=== PATIENT | female | born 1945 | race Native Hawaiian/Other Pacific Islander ===

== ENCOUNTER → 2016-04-03 | Outpatient (CLI) | payer MEDICARE, OTHER ==
[~2016-04-03] MED LIST: ACETAMINOPHEN TAB 500 MG TAB PO ONE; FAMOTIDINE 20 MG/2 ML VIAL IV ONE; SODIUM CHLORIDE 0.9% 250 ML in EMPTY BAG 1 BAG IV PRN; SODIUM CHLORIDE 0.9% 500 ML in EMPTY BAG 1 BAG IV PRN; diphenhydrAMINE 50 MG/ML 1 ML VIAL IVP ONE; methylPREDNISolone SOD SUCCI 125 MG/2 ML VIAL IV ONE; riTUXimab 700 MG in SODIUM CHLORIDE 0.9% 500 ML IV NR
[2016-04-03 09:15] VITALS: TEMP 98.5
[2016-04-03 09:55] LABS: Basophils % (A) 1 %; CH 31.3; CHCM 33.8; Eosinophils # (A) 0.1 k/uL (0-0.7); Eosinophils % (A) 2 %; HCT 39.3 % (34.0-46.0); HDW 2.73; Luc # (Auto) 0.14; Luc % (Auto) 4; Lymphocytes # (A) 1.6 k/uL (1.0-4.8); Lymphocytes % (A) 40 %; MCH 30.7 pg (25.0-35.0); MCHC 33.1 g/dL (31.0-37.0); MCV 92.9 fL (80.0-100.0); Mean Platelet Volume 7.6; Monocytes # (A) 0.4 k/uL (0-1.0); Monocytes % (A) 11 %; Neutrophils # (A) 1.7 k/uL (1.3-7.7); Neutrophils % (A) 43 %; RBC 4.23 m/uL (3.80-5.40); RDW 12.9 % (11.5-15.5); WBC (Perox) 4.06
[2016-04-03 11:00] VITALS: RESP 18
[2016-04-03 12:13] VITALS: BP 139/58; PULSE 67
== END | disposition home or self-care (01) ==
LOC: PROCWHC3 08:43
PROVIDERS: ATTEND Internal Medicine Hematology & Oncology
DX: Z51.11 Encounter for antineoplastic chemotherapy (principal); C82.01 Follicular lymphoma grade I, lymph nodes of head, face, and neck
CPT/HCPCS: 85025; 96375; 96413; 96415; 36415; J1200; J2930; J9310

== ENCOUNTER → 2016-05-29 | Outpatient (CLI) | payer MEDICARE, OTHER ==
[2016-05-29 08:31] VITALS: TEMP 98.1
[2016-05-29 08:45] LABS: Basophils % (A) 1 %; CHCM 34.2; Eosinophils # (A) 0.1 k/uL (0-0.7); Eosinophils % (A) 2 %; HCT 36.4 % (34.0-46.0); HDW 2.76; HGB 12.7 gm/dL (11.4-16.0); Luc # (Auto) 0.14; Luc % (Auto) 3; Lymphocytes # (A) 1.2 k/uL (1.0-4.8); Lymphocytes % (A) 22 %; MCH 32.7 pg (25.0-35.0); MCHC 34.8 g/dL (31.0-37.0); MCV 94.1 fL (80.0-100.0); Mean Platelet Volume 8.4; Monocytes # (A) 0.4 k/uL (0-1.0); Monocytes % (A) 8 %; Neutrophils # (A) 3.5 k/uL (1.3-7.7); Neutrophils % (A) 65 %; RBC 3.87 m/uL (3.80-5.40); RDW 12.9 % (11.5-15.5); WBC 5.4 k/uL (3.8-10.6); WBC (Perox) 5.82
[2016-05-29 11:49] VITALS: BP 137/61; PULSE 65; RESP 18
== END | disposition home or self-care (01) ==
LOC: PROCWHC3 08:17
PROVIDERS: ATTEND Internal Medicine Hematology & Oncology
DX: C82.01 Follicular lymphoma grade I, lymph nodes of head, face, and neck (principal)
CPT/HCPCS: 85025; 96365; 96366; 96375; 36415; J1200; J2930; J9310

== ENCOUNTER → 2016-07-08 | Outpatient (CLI) | payer MEDICARE ==
--- NOTE | 2016-07-08 19:38 | PE ---
Nuclear medicine PET/CT HISTORY: Lymphoma The patient received 13.5 mCi F-18 FDG and delayed scanning was performed from the skull base through the mid thighs. Localization and attenuation correction CT scan was performed. Correlation to prior nuclear medicine PET/CT second of June 2015 Neck and chest: There is no evident adenopathy. No lung mass, there is no pleural or pericardial effu stacy. No suspicious hypermetabolic uptake. Small prevascular node is present in the mediastinum. Abdomen pelvis: The abnormal soft tissue in the periaortic location has diminished markedly in the in terval, mesenteric adenopathy has normalized, is no longer enlarged, there is a minimal inflammatory change in the mesenteric fat. In the right groin there is a persistent focus of soft tissue measuring approximately 12 mm with associated hypermetabolic uptake SUV 4.9, left groin no is also present whi ch is not enlarged but shows associated hypermetabolic uptake, SUV 2.3. IMPRESSION: Improvement as compared to previous exam, persistent uptake within the groin regions as d escribed.
== END | disposition home or self-care (01) ==
LOC: RADPETMAIN 10:16
PROVIDERS: ATTEND Internal Medicine Hematology & Oncology
DX: C85.90 Non-Hodgkin lymphoma, unspecified, unspecified site (principal)
CPT/HCPCS: 78815; A9552

== ENCOUNTER → 2016-08-03 | Outpatient (CLI) | payer MEDICARE ==
[~2016-08-03] MED LIST changes: -riTUXimab 700 MG in SODIUM CHLORIDE 0.9% 500 ML IV NR; +riTUXimab 700 MG in SODIUM CHLORIDE 0.9% 500 ML IV ONE
[2016-08-03 10:39] VITALS: RESP 16; TEMP 97.9
[2016-08-03 10:44] LABS: Basophils % (A) 1 %; CH 31.9; CHCM 33.8; Eosinophils # (A) 0.2 k/uL (0-0.7); Eosinophils % (A) 3 %; HGB 13.1 gm/dL (11.4-16.0); Luc # (Auto) 0.09; Luc % (Auto) 2; Lymphocytes # (A) 1.2 k/uL (1.0-4.8); Lymphocytes % (A) 23 %; MCH 31.8 pg (25.0-35.0); MCHC 33.5 g/dL (31.0-37.0); MCV 94.9 fL (80.0-100.0); Mean Platelet Volume 7.5; Monocytes # (A) 0.4 k/uL (0-1.0); Monocytes % (A) 7 %; Neutrophils # (A) 3.1 k/uL (1.3-7.7); Neutrophils % (A) 64 %; RBC 4.11 m/uL (3.80-5.40); RDW 12.7 % (11.5-15.5); WBC 4.9 k/uL (3.8-10.6); WBC (Perox) 5.22
[2016-08-03 14:30] VITALS: BP 165/68; PULSE 72
== END | disposition home or self-care (01) ==
LOC: PROCWHC3 10:07
PROVIDERS: ATTEND Internal Medicine Hematology & Oncology
DX: C82.01 Follicular lymphoma grade I, lymph nodes of head, face, and neck (principal)
CPT/HCPCS: 85025; 96375; 96413; 96415; 36415; J1200; J2930; J9310

== ENCOUNTER → 2016-09-28 | Outpatient (CLI) | payer MEDICARE ==
[2016-09-28 10:26] VITALS: TEMP 98.6
[2016-09-28 10:48] LABS: Basophils % (A) 1 %; CH 31.5; Eosinophils # (A) 0.1 k/uL (0-0.7); Eosinophils % (A) 4 %; HCT 36.3 % (34.0-46.0); HDW 2.82; HGB 12.9 gm/dL (11.4-16.0); Luc # (Auto) 0.11; Luc % (Auto) 4; Lymphocytes # (A) 1.2 k/uL (1.0-4.8); Lymphocytes % (A) 42 %; MCH 32.2 pg (25.0-35.0); MCHC 35.6 g/dL (31.0-37.0); MCV 90.4 fL (80.0-100.0); Mean Platelet Volume 7.9; Monocytes # (A) 0.4 k/uL (0-1.0); Monocytes % (A) 14 %; Neutrophils % (A) 36 %; RBC 4.01 m/uL (3.80-5.40); RDW 12.7 % (11.5-15.5); WBC 2.9 k/uL (3.8-10.6)
[2016-09-28 13:14] VITALS: PULSE 63
[2016-09-28 13:44] VITALS: BP 136/63; RESP 18
== END | disposition home or self-care (01) ==
LOC: PROCWHC3 09:54
PROVIDERS: ATTEND Internal Medicine Hematology & Oncology
DX: C82.01 Follicular lymphoma grade I, lymph nodes of head, face, and neck (principal)
CPT/HCPCS: 85025; 96375; 96413; 96415; 36415; J1200; J2930; J9310

== ENCOUNTER → 2017-02-09 | Outpatient (CLI) | payer MEDICARE ==
--- NOTE | 2017-02-13 07:50 | MM ---
Reason for exam: screening (asymptomatic). Last mammogram was performed 6 years and 4 months ago. History: Patient is postmenopausal. Physical Findings: A clinical breast exam by your physician is recommended on an annual basis and results should be correlated with mammographic findings. MG 3D Screening Mammo W/Cad Bilateral CC and MLO view(s) were taken. Prior study comparison: October 10, 2010, bilateral digital screening mammo w/CAD. July 30, 2008, mammogram, performed at [facility]. The breast tissue is heterogeneously dense. This may lower the sensitivity of mammography. No significant changes when compared with prior studies. ASSESSMENT: Negative, BI-RAD 1 RECOMMENDATION: Routine screening mammogram of both breasts in 1 year.
== END | disposition home or self-care (01) ==
LOC: RADMAMWWP 14:33
PROVIDERS: ATTEND Family Medicine
DX: Z12.31 Encounter for screening mammogram for malignant neoplasm of breast (principal)
CPT/HCPCS: 77063; G0202

== ENCOUNTER → 2017-08-25 | Outpatient (CLI) | payer MEDICARE ==
--- NOTE | 2017-08-26 13:39 | PE ---
EXAMINATION TYPE: PET CT fusion skull to thigh DATE OF EXAM: 08/25/2017 COMPARISON: Prior PET/CT July 08, 2016 and older PET/CT study June 26, 2015 HISTORY: Follicular lymphoma progress study TECHNIQUE: Following the intravenous administration of 14.374 mCi of F-18 FDG, whole body images are performed from the skull base to the midthigh. Images are reviewed on the computer in the coronal, axial, and sagittal planes. Reconstructed rotating images are created on independent workstation and reviewed on the computer. A noncontrast CT is performed in conjunction with the PET scan. SCAN: Subsequent Scan FINDINGS: LIVER MEAN SUV: 2.45 MEDIASTINUM MEAN SUV: 0.82 SKULL BASE AND NECK: Prominent left supraclavicular lymph nodes are redemonstrated near axial image 53, for reference more anterior lymph node measures 1.3 x 0.8 cm. No suspicious hypermetabolic uptake is present currently. No significant change in size from most recent CT. CHEST, MEDIASTINUM, AND HILAR REGION: No suspicious hypermetabolic uptake or enlarged lymph nodes wit h particular attention to the right axilla and posterior left shoulder region at areas of prior adeno yolie on 2016 study. No hypermetabolic enlarged mediastinal lymph nodes are seen on current study. ABDOMEN AND PELVIS: No hepatosplenomegaly is seen. Scattered prominent but subcentimeter lymph nodes throughout the mesentery remain present without abnormal hypermetabolic uptake no significant change from most recent PET/CT. There are predominately stable prominent a metabolic retroperitoneal lymph nodes at and below renal a rteries. There is however new hypermetabolic left periaortic lymph node axial image 157 measuring 2.0 x 1.0 cm, max SUV is 4.74. Abnormal uptake right periaortic region is felt to reflect uptake along c ourse of right ureter. There is however new left external iliac chain lymph node axial image 206 дмитрий uring 1.9 x 1.5 cm, max SUV is 11.36. There are new abnormal bilateral groin lymph nodes however, for reference left groin lymph node measu res 2.3 x 1.8 cm with max SUV of 11.32 on axial image 239. For reference right groin lymph node measu res 2.5 x 1.8 cm on axial image 237 with max SUV of 9.01. OSSEOUS STRUCTURES: No new suspicious areas of abnormal hypermetabolic uptake. OTHER CT: Diffuse fatty infiltration of liver is redemonstrated. Cholecystectomy clips are again seen . There is some multilevel facet arthropathy in the lower lumbar spine. A few scattered pelvic phleboli ths are present. IMPRESSION: Active neoplastic recurrence is identified with new enlarged hypermetabolic lymph nodes i n the bilateral groin, left pelvis iliac chain lymph node, and retroperitoneum of the abdomen.
== END | disposition home or self-care (01) ==
LOC: RADPETMAIN 09:22
PROVIDERS: ATTEND Internal Medicine Hematology & Oncology
DX: C82.01 Follicular lymphoma grade I, lymph nodes of head, face, and neck (principal)
CPT/HCPCS: 78815; A9552

== ENCOUNTER 2017-10-04 08:51 | Day surgery (SDC) | payer MEDICARE ==
[2017-10-04 09:12] VITALS: BP 174/75; PULSE 70; RESP 20; TEMP 98.2
[2017-10-04 09:32] LABS: Glucose,Whole Blood 246 mg/dL (75-99)
--- NOTE | 2017-10-04 13:07 | US ---
EXAMINATION TYPE: US biopsy lymph node fine-needle aspiration and core biopsy right thigh mass DATE OF EXAM: 10/04/2017 HISTORY: Right proximal thigh mass. FINDINGS: Maximal barrier technique was utilized. The skin overlying a suitable path to the patient' s mass was localized with ultrasound and the overlying skin prepped and draped. Ultrasound was utili zed with sterile technique. Lidocaine was used for local anesthesia. 2 passes with a 21 and subseque ntly 25-gauge needle were made into the mass under ultrasound guidance. A skin greta was made with a scalpel. An 18-gauge needle was advanced under direct ultrasound guidance and core specimen obtained of the mass, additional core biopsy obtained with an 18-gauge needle. Specimens submitted to Pathol prachi. Following the procedure, hemostasis achieved and the patient is discharged in stable condition without complication. IMPRESSION:STATUS POST ULTRASOUND GUIDED CORE BIOPSY and fine-needle aspiration OF right lower extrem ity MASS, PATHOLOGY IS PENDING. THIS PROCEDURE IS PERFORMED BY THE UNDERSIGNED.
== END 2017-10-04 10:35 | disposition home or self-care (01) ==
LOC: RADPROMAIN 08:51
PROVIDERS: ATTEND Internal Medicine Hematology & Oncology
DX: C85.90 Non-Hodgkin lymphoma, unspecified, unspecified site (principal); R59.1 Generalized enlarged lymph nodes
CPT/HCPCS: 38505; 76942; 88173; 88305

== ENCOUNTER → 2018-04-20 | Outpatient (CLI) | payer MEDICARE ==
--- NOTE | 2018-04-22 07:56 | PE ---
EXAMINATION TYPE: PET CT fusion skull to thigh DATE OF EXAM: 04/21/2018 CLINICAL HISTORY: 72-year-old female restaging lymphoma TECHNIQUE: Following the intravenous administration of 12.0 mCi of F-18 FDG, whole body images are performed from the skull base to the midthigh. Images are reviewed on the computer in the coronal, a xial, and sagittal planes. Reconstructed rotating images are created on independent workstation and reviewed on the computer. A localization and attenuation correction CT is performed in conjunction with the PET scan. Glucose level: 123 mg/dL CTDI: 4.88 mGy DLP: 434.02 mGy/cm Injection site: Left AC COMPARISON: 08/25/2017. FINDINGS: PET: Physiologic FDG uptake within the neck and chest. Average liver SUV 2.4. Retroperitoneal lymph nodes at the level of the pancreas measure 9 mm, unchanged and without any disc rete FDG uptake. Previously hypermetabolic left paraaortic lymph node has decreased in size now measuring 8 mm versus 1.3 cm, previously and no longer shows any FDG uptake. Either tortuous vessels in the left periaortic region or stable lymph nodes measuring up to 1.2 cm al so show no discrete FDG uptake. Stable myesha mesentery with some associated prominent mesenteric lymph nodes measuring up to 9 mm are unchanged and show no discrete FDG uptake. The previous left external iliac chain lymph node now measures 4 mm versus 1.5 cm, previously. No FDG uptake. The previous bilateral inguinal lymph nodes now measure up to 1.1 cm with normal fatty hilum versus 1 .8 cm, previously and no longer show any FDG uptake. Focal moderate uptake along the left antecubital fossa compatible with site of FDG injection. ATTENUATION CORRECTION CT: Visualized paranasal sinuses and mastoid air cells appear clear. No cervical lymphadenopathy. Heart normal size without pericardial effusion. Aorta normal caliber with mild atherosclerotic arch calcifications and conventional arch vessel branching anatomy. Scattered small mediastinal lymph nod es measuring up to 8 mm are unchanged. Dependent atelectasis and mild emphysema. No consolidation or pleural effusion. Tiny hiatal hernia. Cholecystectomy clips. Some nodular calcifications along the hepatorenal recess could represent some dropped stones. These are unchanged. No dilated small bowel, free fluid, or janine e air. Scattered mild to moderate stool burden. No pericolonic inflammatory change. Bladder not distended. Uterus and both ovaries are visualized. Pelvic phlebolith. No abnormal fluid c ollection in the pelvis. Bones: Degenerative changes of the hips. Degenerative disc disease mid to lower lumbar spine. No osse ous destructive process. IMPRESSION: 1. Complete metabolic and CT response to the previous recurrence described on 08/25/2017. No active dis ease seen. 2. Chronic myesha mesentery with other stable borderline to mildly enlarged mesenteric and retroperito ping lymph nodes which continue to show no suspicious hypermetabolism. Findings likely reflect previo usly treated disease.
== END ==
LOC: RADPETMAIN 09:30
PROVIDERS: ATTEND Internal Medicine Hematology & Oncology
DX: C82.01 Follicular lymphoma grade I, lymph nodes of head, face, and neck (principal)
CPT/HCPCS: 78815; A9552

== ENCOUNTER → 2018-05-10 | Outpatient (CLI) | payer MEDICARE ==
--- NOTE | 2018-05-10 18:44 | ECHOF ---
Referral Reason:C82.01 Lymphoma, Z01.818 Chemotherapy MEASUREMENTS -------- HEIGHT: 165.1 cm WEIGHT: 74.4 kg BP: IVSd: 1.0 cm (0.6 - 1.1) LVIDd: 4.8 cm (3.9 - 5.3) LVPWd: 1.1 cm (0.6 - 1.1) IVSs: 1.4 cm LVIDs: 3.1 cm LVPWs: 1.5 cm LAESV Index (A-L): 16.64 ml/m Ao Diam: 3.6 cm (2.0 - 3.7) AV Cusp: 1.8 cm (1.5 - 2.6) LA Diam: 3.0 cm (2.7 - 3.8) MV EXCURSION: 12.364 mm (> 18.000) MV EF SLOPE: 69 mm/s (70 - 150) EPSS: 0.6 cm MV E Christopher: 0.64 m/s MV DecT: 186 ms MV A Christopher: 1.00 m/s MV E/A Ratio: 0.64 RAP: 5.00 mmHg RVSP: 10.09 mmHg FINDINGS -------- Sinus rhythm. This was a technically adequate study. The left ventricular size is normal. Left ventricular wall thickness is normal. Overall left vent ricular systolic function is normal with, an EF between 55 - 60 %. The right ventricle is normal in size and function. Normal LA size by volume 22+/-6 ml/m2. The right atrium is normal in size. Aortic valve is trileaflet and is mildly thickened. There is no evidence of aortic regurgitation. There is no evidence of aortic stenosis. The mitral valve leaflets are mildly thickened. There is trace to mild mitral regurgitation. Trace tricuspid regurgitation present. Right ventricular systolic pressure is normal at < 35 mmHg. There is no evidence of pulmonary hypertension. Trace/mild (physiologic) pulmonic regurgitation. The aortic root size is normal. Normal inferior vena cava with normal inspiratory collapse consistent with estimated right atrial pre ssure of 5 mmHg. There is a trivial pericardial effusion present. CONCLUSIONS -------- 1. Sinus rhythm. 2. This was a technically adequate study. 3. The left ventricular size is normal. 4. Left ventricular wall thickness is normal. 5. Overall left ventricular systolic function is normal with, an EF between 55 - 60 %. 6. Normal LA size by volume 22+/-6 ml/m2. 7. Aortic valve is trileaflet and is mildly thickened. 8. The mitral valve leaflets are mildly thickened. 9. There is trace to mild mitral regurgitation. 10. Trace tricuspid regurgitation present. 11. Right ventricular systolic pressure is normal at < 35 mmHg. 12. There is no evidence of pulmonary hypertension. 13. Trace/mild (physiologic) pulmonic regurgitation. 14. The aortic root size is normal. 15. There is a trivial pericardial effusion present. TEST DESK TROUBLE LOCATOR: Romero Espinoza RDCS
== END ==
LOC: RADECHMAIN 14:45
PROVIDERS: ATTEND Internal Medicine Hematology & Oncology
DX: I08.0 Rheumatic disorders of both mitral and aortic valves (principal)
CPT/HCPCS: 93306

== ENCOUNTER → 2018-06-18 | Outpatient (CLI) | payer MEDICARE ==
[~2018-06-18] MED LIST changes: +ACETAMINOPHEN TAB 325 MG TAB PO NR; -ACETAMINOPHEN TAB 500 MG TAB PO ONE; -FAMOTIDINE 20 MG/2 ML VIAL IV ONE; +FAMOTIDINE 20 MG/2 ML VIAL IVP NR; -SODIUM CHLORIDE 0.9% 250 ML in EMPTY BAG 1 BAG IV PRN; +SODIUM CHLORIDE 0.9% 500 ML 500 ML in EMPTY BAG 1 BAG IV PRN; -SODIUM CHLORIDE 0.9% 500 ML in EMPTY BAG 1 BAG IV PRN; +diphenhydrAMINE 50 MG/ML 1 ML VIAL IVP NR; -diphenhydrAMINE 50 MG/ML 1 ML VIAL IVP ONE; -methylPREDNISolone SOD SUCCI 125 MG/2 ML VIAL IV ONE; +methylPREDNISolone SOD SUCCI 125 MG/2 ML VIAL IVP NR; +riTUXimab 700 MG in SODIUM CHLORIDE 0.9% 500 ML 500 ML IV NR; -riTUXimab 700 MG in SODIUM CHLORIDE 0.9% 500 ML IV ONE
[2018-06-18 09:52] VITALS: RESP 16; TEMP 97.7
[2018-06-18 10:21] LABS: Basophils % (A) 1 %; Eosinophils # (A) 0.1 k/uL (0-0.7); Eosinophils % (A) 4 %; HCT 37.3 % (34.0-46.0); HGB 12.4 gm/dL (11.4-16.0); Lymphocytes # (A) 0.6 k/uL (1.0-4.8); Lymphocytes % (A) 21 %; MCH 33.5 pg (25.0-35.0); MCHC 33.2 g/dL (31.0-37.0); MCV 100.8 fL (80.0-100.0); Mean Platelet Volume 8.6; Monocytes # (A) 0.4 k/uL (0-1.0); Monocytes % (A) 13 %; Neutrophils # (A) 1.7 k/uL (1.3-7.7); Neutrophils % (A) 59 %; Platelet Count 217 k/uL (150-450); RDW 12.7 % (11.5-15.5); WBC 2.9 k/uL (3.8-10.6)
[2018-06-18 13:13] VITALS: BP 139/63; PULSE 68
== END | disposition home or self-care (01) ==
LOC: PROCWHC3 09:16 → EDSTATUS 09:30
PROVIDERS: ATTEND Internal Medicine Hematology & Oncology
DX: C82.01 Follicular lymphoma grade I, lymph nodes of head, face, and neck (principal)
CPT/HCPCS: 85025; 96375; 96413; 96415; J1200; J2930; J9312

== ENCOUNTER → 2018-08-13 | Outpatient (CLI) | payer MEDICARE ==
[2018-08-13 09:38] VITALS: RESP 16; TEMP 97.8
[2018-08-13 09:57] LABS: Basophils % (A) 1 %; Eosinophils # (A) 0.2 k/uL (0-0.7); Eosinophils % (A) 4 %; HCT 34.9 % (34.0-46.0); HGB 11.5 gm/dL (11.4-16.0); Lymphocytes # (A) 0.7 k/uL (1.0-4.8); Lymphocytes % (A) 20 %; MCH 31.9 pg (25.0-35.0); MCV 96.6 fL (80.0-100.0); Mean Platelet Volume 8.3; Monocytes # (A) 0.6 k/uL (0-1.0); Monocytes % (A) 17 %; Neutrophils % (A) 56 %; Platelet Count 169 k/uL (150-450); RBC 3.62 m/uL (3.80-5.40); RDW 13.6 % (11.5-15.5); WBC 3.6 k/uL (3.8-10.6)
[2018-08-13 13:27] VITALS: BP 144/63; PULSE 69
== END ==
LOC: PROCWHC3 09:17
PROVIDERS: ATTEND Internal Medicine Hematology & Oncology
DX: C82.01 Follicular lymphoma grade I, lymph nodes of head, face, and neck (principal)
CPT/HCPCS: 85025; 96375; 96413; 96415; J1200; J2930; J9312

== ENCOUNTER → 2018-10-08 | Outpatient (CLI) | payer MEDICARE ==
[2018-10-08 09:30] VITALS: RESP 18; TEMP 98.3
[2018-10-08 09:43] LABS: Basophils % (A) 1 %; Eosinophils # (A) 0.2 k/uL (0-0.7); Eosinophils % (A) 5 %; HCT 35.9 % (34.0-46.0); HGB 11.9 gm/dL (11.4-16.0); Lymphocytes # (A) 0.7 k/uL (1.0-4.8); Lymphocytes % (A) 20 %; MCH 31.8 pg (25.0-35.0); MCV 96.3 fL (80.0-100.0); Mean Platelet Volume 7.4; Monocytes # (A) 0.4 k/uL (0-1.0); Monocytes % (A) 10 %; Neutrophils # (A) 2.2 k/uL (1.3-7.7); Neutrophils % (A) 61 %; Platelet Count 198 k/uL (150-450); RBC 3.73 m/uL (3.80-5.40); RDW 12.5 % (11.5-15.5); WBC 3.7 k/uL (3.8-10.6)
[2018-10-08 11:37] VITALS: BP 135/74; PULSE 64
== END | disposition home or self-care (01) ==
LOC: PROCWHC3 09:06
PROVIDERS: ATTEND Internal Medicine Hematology & Oncology
DX: Z51.12 Encounter for antineoplastic immunotherapy (principal); C82.01 Follicular lymphoma grade I, lymph nodes of head, face, and neck
CPT/HCPCS: 85025; 96375; 96413; 96415; 36415; J1200; J2930; J9312

== ENCOUNTER → 2018-12-04 | Outpatient (CLI) | payer MEDICARE ==
[~2018-12-04] MED LIST changes: +FAMOTIDINE 20 MG/2 ML VIAL IV NR; -FAMOTIDINE 20 MG/2 ML VIAL IVP NR; +methylPREDNISolone SOD SUCCI 125 MG/2 ML VIAL IV NR; -methylPREDNISolone SOD SUCCI 125 MG/2 ML VIAL IVP NR
[2018-12-04 09:49] VITALS: RESP 16; TEMP 98.2
[2018-12-04 09:55] LABS: Basophils # (A) 0.1 k/uL (0-0.2); Basophils % (A) 1 %; Eosinophils # (A) 0.2 k/uL (0-0.7); Eosinophils % (A) 4 %; HCT 36.8 % (34.0-46.0); HGB 12.4 gm/dL (11.4-16.0); Lymphocytes # (A) 0.6 k/uL (1.0-4.8); Lymphocytes % (A) 13 %; MCH 32.6 pg (25.0-35.0); MCHC 33.7 g/dL (31.0-37.0); MCV 96.8 fL (80.0-100.0); Mean Platelet Volume 7.5; Monocytes # (A) 0.4 k/uL (0-1.0); Monocytes % (A) 9 %; Neutrophils # (A) 3.2 k/uL (1.3-7.7); Neutrophils % (A) 71 %; Platelet Count 216 k/uL (150-450); RBC 3.81 m/uL (3.80-5.40); RDW 14.2 % (11.5-15.5); WBC 4.6 k/uL (3.8-10.6)
[2018-12-04 12:23] VITALS: BP 164/77; PULSE 78
== END | disposition home or self-care (01) ==
LOC: PROCWHC3 09:10
PROVIDERS: ATTEND Internal Medicine Hematology & Oncology
DX: Z51.11 Encounter for antineoplastic chemotherapy (principal); C82.01 Follicular lymphoma grade I, lymph nodes of head, face, and neck
CPT/HCPCS: 85025; 96375; 96413; 96415; 36415; J1200; J2930; J9312

== ENCOUNTER → 2019-01-29 | Outpatient (CLI) | payer MEDICARE ==
[2019-01-29 09:13] VITALS: RESP 16; TEMP 98
[2019-01-29 09:37] LABS: Basophils # (A) 0.1 k/uL (0-0.2); Basophils % (A) 1 %; Eosinophils # (A) 0.2 k/uL (0-0.7); Eosinophils % (A) 5 %; HCT 36.4 % (34.0-46.0); HGB 12.3 gm/dL (11.4-16.0); Lymphocytes # (A) 0.7 k/uL (1.0-4.8); Lymphocytes % (A) 15 %; MCH 32.8 pg (25.0-35.0); MCHC 33.8 g/dL (31.0-37.0); MCV 96.9 fL (80.0-100.0); Mean Platelet Volume 7.4; Monocytes # (A) 0.4 k/uL (0-1.0); Monocytes % (A) 8 %; Neutrophils # (A) 3.1 k/uL (1.3-7.7); Neutrophils % (A) 69 %; Platelet Count 180 k/uL (150-450); RBC 3.76 m/uL (3.80-5.40); RDW 12.6 % (11.5-15.5); WBC 4.5 k/uL (3.8-10.6)
[2019-01-29 12:27] VITALS: BP 136/72; PULSE 76
== END | disposition home or self-care (01) ==
LOC: PROCWHC3 09:00
PROVIDERS: ATTEND Internal Medicine Hematology & Oncology
DX: Z51.11 Encounter for antineoplastic chemotherapy (principal); C82.01 Follicular lymphoma grade I, lymph nodes of head, face, and neck
CPT/HCPCS: 85025; 96375; 96413; 96415; 36415; J1200; J2930; J9312

== ENCOUNTER 2019-03-27 15:33 | Emergency (ER) | payer MEDICARE ==
[2019-03-27 16:08] VITALS: TEMP 98.2
[2019-03-27] MEDS ORDERED: hydrALAZINE HCL 20 MG/ML 1 ML VIAL IVP STA (18:12)
[2019-03-27 19:33] LABS: Albumin 5.1 g/dL (3.5-5.0); Calcium 9.7 mg/dL (8.4-10.2); Total Bilirubin 1.3 mg/dL (0.2-1.3); Total Protein 8.5 g/dL (6.3-8.2)
[2019-03-27 19:36] VITALS: RESP 18
[2019-03-27 19:40] LABS: Potassium 4.7 mmol/L (3.5-5.1)
[2019-03-27] MEDS ORDERED: SODIUM CHLORIDE 0.9% 500 ML 500 ML IV ONE (19:50)
[2019-03-27 20:38] LABS: Appearance,Urine Clear (Clear); Bilirubin,Urine Negative (Negative); Blood,Urine Negative (Negative); Color,Urine Light Yellow; Glucose,Urine (UA) 4+ (Negative); Ketones,Urine Negative (Negative); Leukocyte Esterase,Urine Negative (Negative); Nitrite,Urine Negative (Negative); PH, Urine 7.5 (5.0-8.0); Protein,Urine Trace (Negative); Specific Gravity,Urine 1.011 (1.001-1.035); Urobilinogen,Urine <2.0 mg/dL (<2.0)
--- NOTE | 2019-03-27 21:23 | ED ---
Recheck HPI - General Chief Complaint: Recheck/Abnormal Lab/Rx Stated Complaint: High BP Time Seen by Provider: 03/27/19 17:49 Source: patient Mode of arrival: ambulatory Limitations: no limitations - History of Present Illness Initial Comments: 73-year-old female presenting today for chief complaint of elevated blood pressure at the infusion center. Patient states she elevated blood pressure at the infusion center she states she felt fatigue-like usually does when she has effusion otherwise no complaints denies any chest pain shortness breath decre ased urination abdominal back pain lower extremity swelling nausea vomiting epigastric pain jaw pain headache dizziness. Patient states that she did not take her blood pressure medications today and she often forgets to. Review of systems negative upon arrival patient appears well besides acute distress. Blood pressure noted to be elevated - Related Data Home Medications Medication Instructions Recorded Confirmed Empagliflozin/Linagliptin 25 mg PO DAILY 12/01/15 03/27/19 [Glyxambi 25 mg-5 mg Tablet] INSULIN ASPART (NovoLOG) [NovoLOG] 20 unit SQ TID 12/01/15 03/27/19 Insulin Glargine [Lantus] 50 unit SQ HS 12/01/15 03/27/19 Losartan [Cozaar] 03/27/19 Allergies Allergy/AdvReac Type Severity Reaction Status Date / Time No Known Allergies Allergy Verified 01/29/19 09:07 Review of Systems ROS Statement: Those systems with pertinent positive or pertinent negative responses have been documented in the HPI. ROS Other: All systems not noted in ROS Statement are negative. Past Medical History Past Medical History: Cancer, Diabetes Mellitus, Hypertension Additional Past Medical History / Comment(s): Non-hodgkins lymphoma diagnosis - June 2015 History of Any Multi-Drug Resistant Organisms: None Reported Past Surgical History: Section, Cholecystectomy, Tubal Ligation Past Anesthesia/Blood Transfusion Reactions: No Reported Reaction Past Psychological History: No Psychological Hx Reported Smoking Status: Former smoker Past Alcohol Use History: None Reported Past Drug Use History: None Reported - Past Family History Sister(s) Family Medical History: Cancer General Exam - General Exam Comments Initial Comments: General: The patient is awake and alert, in no distress, and does not appear acutely ill. Eye: =3 mm pupils are equal, round and reactive to light, extra-ocular movements are intact. No nystagmus. There is normal conjunctiva bilaterally. No signs of icterus. Ears, nose, mouth and throat: There are moist mucous membranes and no oral lesions. Neck: The neck is supple, there is no tenderness or JVD. Cardiovascular: There is a regular rate and rhythm. No murmur, rub or gallop is appreciated. Respiratory: Lungs are clear to auscultation, respirations are non-labored, breath sounds are equal. No wheezes, stridor, rales, or rhonchi. Gastrointestinal: Soft, non-distended, non-tender abdomen without masses or organomegaly noted. There is no rebound or guarding present. No pulsatile masses Musculoskeletal: Normal ROM, no tenderness. Strength 5/5. Sensation intact. Pulses equal bilaterally 2+. Neurological: A&O x 3. CN II-XII intact grossly, There are no obvious motor or sensory deficits. Coordination appears grossly intact. Speech is normal. Skin: Skin is warm and dry and no rashes or lesions are noted. Psychiatric: Cooperative, appropriate mood & affect, normal judgment. Limitations: no limitations Course Vital Signs 03/27/19 03/27/19 03/27/19 16:06 17:42 18:46 Temperature 98.2 F Pulse Rate 88 76 81 Respiratory 17 16 16 Rate Blood Pressure 202/83 233/114 173/90 O2 Sat by Pulse 98 97 99 Oximetry 03/27/19 03/27/19 19:35 21:24 Temperature Pulse Rate 68 82 Respiratory 18 18 Rate Blood Pressure 172/62 181/81 O2 Sat by Pulse 100 99 Oximetry Medical Decision Making - Medical Decision Making 73-year-old female presenting for elevated blood pressure. EKG no acute findings. Patient has no extremity swelling. No chest pain or shortness of breath. Laboratory studies including CBC obtained earlier today was reviewed revealing no acute findings. Troponin (-). Blood glucose elevated, ketones (-), acetone (-). Patient give IV fluids. Recommended taking home medications for DM and HTN when home. Patient blood pressure down trending remains asymptomatic, requesting d/c. This case attending provider Dr. Lorenzo who is agreeable to plan discharge at this time. EKG ventricular rate 92 bpm, MI interval 146 ms, QR muslim 80 ms, QT/QTC 376 S4 64. Normal sinus with left axis deviation. No ST elevation or depression. No acte findigns noted. EKG reviewed by attending provider - Lab Data Result diagrams: 03/27/19 17:40 Lab Results 03/27/19 03/27/19 03/27/19 Range/Units 17:40 17:40 19:53 Sodium 140 (137-145) mmol/L Potassium 4.7 (3.5-5.1) mmol/L Chloride 105 (98-107) mmol/L Carbon Dioxide 20 L (22-30) mmol/L Anion Gap 15 mmol/L BUN 13 (7-17) mg/dL Creatinine 0.79 (0.52-1.04) mg/dL Est GFR (CKD-EPI)AfAm 87 (>60 ml/min/1.73 sqM) Est GFR (CKD-EPI)NonAf 76 (>60 ml/min/1.73 sqM) Glucose 332 H (74-99) mg/dL Calcium 9.7 (8.4-10.2) mg/dL Total Bilirubin 1.3 (0.2-1.3) mg/dL AST 51 H (14-36) U/L ALT 30 (4-34) U/L Alkaline Phosphatase 155 H (38-126) U/L Troponin I <0.012 (0.000-0.034) ng/mL Total Protein 8.5 H (6.3-8.2) g/dL Albumin 5.1 H (3.5-5.0) g/dL Urine Color Urine Appearance (Clear) Urine pH (5.0-8.0) Ur Specific [place] (1.001-1.035) Urine Protein (Negative) Urine Glucose (UA) (Negative) Urine Ketones (Negative) Urine Blood (Negative) Urine Nitrite (Negative) Urine Bilirubin (Negative) Urine Urobilinogen (<2.0) mg/dL Ur Leukocyte Esterase (Negative) Acetone, Qual Negative (Negative) 03/27/19 Range/Units 19:54 Sodium (137-145) mmol/L Potassium (3.5-5.1) mmol/L Chloride (98-107) mmol/L Carbon Dioxide (22-30) mmol/L Anion Gap mmol/L BUN (7-17) mg/dL Creatinine (0.52-1.04) mg/dL Est GFR (CKD-EPI)AfAm (>60 ml/min/1.73 sqM) Est GFR (CKD-EPI)NonAf (>60 ml/min/1.73 sqM) Glucose (74-99) mg/dL Calcium (8.4-10.2) mg/dL Total Bilirubin (0.2-1.3) mg/dL AST (14-36) U/L ALT (4-34) U/L Alkaline Phosphatase (38-126) U/L Troponin I (0.000-0.034) ng/mL Total Protein (6.3-8.2) g/dL Albumin (3.5-5.0) g/dL Urine Color Light Yellow Urine Appearance Clear (Clear) Urine pH 7.5 (5.0-8.0) Ur Specific [place] 1.011 (1.001-1.035) Urine Protein Trace H (Negative) Urine Glucose (UA) 4+ H (Negative) Urine Ketones Negative (Negative) Urine Blood Negative (Negative) Urine Nitrite Negative (Negative) Urine Bilirubin Negative (Negative) Urine Urobilinogen <2.0 (<2.0) mg/dL Ur Leukocyte Esterase Negative (Negative) Acetone, Qual (Negative) Disposition Clinical Impression: Elevated blood pressure reading, Elevated random blood glucose level Disposition: HOME SELF-CARE Condition: Good Instructions (If sedation given, give patient instructions): Hypertension (ED) Additional Instructions: Please use medication as discussed. Please follow-up with family doctor in the next 2 days. Please return to emergency room if the symptoms increase or worsen or for any other concerns. Is patient prescribed a controlled substance at d/c from ED?: No Referrals: Golden Leal MD [Primary Care Provider] - 1-2 days Time of Disposition: 21:21
[2019-03-27 21:25] VITALS: BP 181/81; PULSE 82
== END 2019-03-27 23:00 | disposition home or self-care (01) ==
LOC: EC 15:33
DX: R03.0 Elevated blood-pressure reading, without diagnosis of hypertension (principal); E11.9 Type 2 diabetes mellitus without complications; I10 Essential (primary) hypertension; Z79.4 Long term (current) use of insulin; Z79.899 Other long term (current) drug therapy; Z87.891 Personal history of nicotine dependence; Z85.72 Personal history of non-Hodgkin lymphomas
CPT/HCPCS: 36415; 80053; 82009; 84484; 81003; 99283; 96374; J0360

== ENCOUNTER → 2019-03-27 | Outpatient (CLI) | payer MEDICARE ==
[~2019-03-27] MED LIST changes: -ACETAMINOPHEN TAB 325 MG TAB PO NR; +ACETAMINOPHEN TAB 325 MG TAB PO ONE; -FAMOTIDINE 20 MG/2 ML VIAL IV NR; +FAMOTIDINE 20 MG/2 ML VIAL IVP ONE; +LOSARTAN 50 MG TAB PO ONE; -diphenhydrAMINE 50 MG/ML 1 ML VIAL IVP NR; +diphenhydrAMINE 50 MG/ML 1 ML VIAL IVP ONE; -methylPREDNISolone SOD SUCCI 125 MG/2 ML VIAL IV NR; +methylPREDNISolone SOD SUCCI 125 MG/2 ML VIAL IV ONE
[2019-03-27 11:25] VITALS: TEMP 97.9
[2019-03-27 11:39] LABS: Basophils % (A) 0 %; Eosinophils # (A) 0.3 k/uL (0-0.7); Eosinophils % (A) 5 %; HGB 12.6 gm/dL (11.4-16.0); Lymphocytes % (A) 20 %; MCH 32.9 pg (25.0-35.0); MCHC 33.9 g/dL (31.0-37.0); Mean Platelet Volume 7.8; Monocytes # (A) 0.4 k/uL (0-1.0); Monocytes % (A) 9 %; Neutrophils # (A) 3.2 k/uL (1.3-7.7); Neutrophils % (A) 62 %; Platelet Count 205 k/uL (150-450); RBC 3.82 m/uL (3.80-5.40); RDW 12.7 % (11.5-15.5); WBC 5.1 k/uL (3.8-10.6)
[2019-03-27 14:04] VITALS: RESP 16
[2019-03-27 15:46] VITALS: BP 208/90; PULSE 77
== END | disposition home or self-care (01) ==
LOC: PROCWHC3 10:54
PROVIDERS: ATTEND Internal Medicine Hematology & Oncology
DX: Z51.11 Encounter for antineoplastic chemotherapy (principal); C82.01 Follicular lymphoma grade I, lymph nodes of head, face, and neck
CPT/HCPCS: 85025; 96375; 96413; 96415; 36415; J1200; J2930; J9312

== ENCOUNTER → 2019-05-21 | Outpatient (CLI) | payer MEDICARE ==
[~2019-05-21] MED LIST changes: +ACETAMINOPHEN TAB 325 MG TAB PO NR; -ACETAMINOPHEN TAB 325 MG TAB PO ONE; +FAMOTIDINE 20 MG/2 ML VIAL IV NR; -FAMOTIDINE 20 MG/2 ML VIAL IVP ONE; -LOSARTAN 50 MG TAB PO ONE; +diphenhydrAMINE 50 MG/ML 1 ML VIAL IVP NR; -diphenhydrAMINE 50 MG/ML 1 ML VIAL IVP ONE; +methylPREDNISolone SOD SUCCI 125 MG/2 ML VIAL IV NR; -methylPREDNISolone SOD SUCCI 125 MG/2 ML VIAL IV ONE
[2019-05-21 08:48] VITALS: RESP 16; TEMP 97.8
[2019-05-21 09:10] LABS: Basophils % (A) 1 %; Eosinophils # (A) 0.3 k/uL (0-0.7); Eosinophils % (A) 6 %; HCT 36.3 % (34.0-46.0); HGB 12.2 gm/dL (11.4-16.0); Lymphocytes # (A) 0.9 k/uL (1.0-4.8); Lymphocytes % (A) 17 %; MCH 32.2 pg (25.0-35.0); MCHC 33.5 g/dL (31.0-37.0); MCV 96.2 fL (80.0-100.0); Mean Platelet Volume 7.7; Monocytes # (A) 0.4 k/uL (0-1.0); Monocytes % (A) 8 %; Neutrophils # (A) 3.4 k/uL (1.3-7.7); Neutrophils % (A) 66 %; Platelet Count 215 k/uL (150-450); RBC 3.78 m/uL (3.80-5.40); RDW 12.6 % (11.5-15.5); WBC 5.1 k/uL (3.8-10.6)
[2019-05-21 10:59] VITALS: BP 129/77; PULSE 69
== END | disposition home or self-care (01) ==
LOC: PROCWHC3 08:28
PROVIDERS: ATTEND Internal Medicine Hematology & Oncology
DX: Z51.11 Encounter for antineoplastic chemotherapy (principal); C82.01 Follicular lymphoma grade I, lymph nodes of head, face, and neck
CPT/HCPCS: 36415; 85025; 96375; 96413; 96415

== ENCOUNTER → 2019-05-30 | Outpatient (CLI) | payer MEDICARE ==
--- NOTE | 2019-05-30 13:12 | MM ---
Reason for exam: screening (asymptomatic). Last mammogram was performed 2 years and 4 months ago. History: Patient is postmenopausal and has history of other cancer at age 70. Physical Findings: A clinical breast exam by your physician is recommended on an annual basis and results should be correlated with mammographic findings. MG 3D Screening Mammo W/Cad Bilateral CC and MLO view(s) were taken. Prior study comparison: February 09, 2017, bilateral MG 3d screening mammo w/cad. October 10, 2010, bilateral digital screening mammo w/CAD. There are scattered fibroglandular densities. Similar right upper inner quadrant middle depth focal asymmetry compared to 2017. ASSESSMENT: Benign, BI-RAD 2 RECOMMENDATION: Routine screening mammogram of both breasts in 1 year.
== END | disposition home or self-care (01) ==
LOC: RADMAMWWP 09:58
PROVIDERS: ATTEND Family Medicine
DX: Z12.31 Encounter for screening mammogram for malignant neoplasm of breast (principal)
CPT/HCPCS: 77063; 77067

== ENCOUNTER → 2019-05-31 | Outpatient (CLI) | payer MEDICARE ==
--- NOTE | 2019-06-03 06:59 | PE ---
EXAMINATION TYPE: PET CT fusion skull to thigh DATE OF EXAM: 05/31/2019 COMPARISON: Prior PET/CT April 20, 2018 and older studies. HISTORY: Follicular lymphoma diagnosed 2017 completed chemotherapy last week. TECHNIQUE: Following the intravenous administration of 12.19 mCi of F-18 FDG, whole body images are performed from the skull base to the midthigh. Images are reviewed on the computer in the coronal, a xial, and sagittal planes. Reconstructed rotating images are created on independent workstation and reviewed on the computer. A noncontrast CT is performed in conjunction with the PET scan. SCAN: Subsequent Scan FINDINGS: MEDIASTINUM MEAN SUV : 0.53 LIVER MEAN SUV : 2.2 SKULL BASE AND NECK: No new areas of suspicious hypermetabolic uptake. CHEST, MEDIASTINUM, AND HILAR REGION: No new areas of suspicious hypermetabolic uptake. ABDOMEN AND PELVIS: Redemonstration myesha mesentery appearance with a few prominent subcentimeter lym ph nodes centered left mid abdomen. No new greater than 1 cm or new hypermetabolic lymph nodes are ap preciated. For reference ametabolic left periaortic lymph node measures 1.4 x 0.7 cm image 165 not si gnificantly changed in size or appearance from most recent PET/CT. Stable prominent left external jones ac chain lymph node axial image 212 without hypermetabolic uptake. Stable subcentimeter bilateral caleb in lymph nodes axial image 246 remain ametabolic. OSSEOUS STRUCTURES: No new areas of suspicious hypermetabolic uptake. OTHER CT: No new suspicious neck adenopathy. Mild emphysematous change redemonstrated.. Cholecystectomy clips again seen. Some nodular calcifications along the hepatorenal recess redemonstr ated could represent some dropped stones. Anteverted uterus. Pelvic phleboliths. Small caliber mildly calcified aorta. Bones: Degenerative changes of the hips. Degenerative disc disease mid to lower lumbar spine. No osse ous destructive process. IMPRESSION: No suspicious new or enlarging greater than 1 cm lymph nodes or new hypermetabolic lymph nodes. No significant change from most recent PET/CT. Positive complete metabolic response redemonstr ated. Deauville score 1.
== END | disposition home or self-care (01) ==
LOC: RADPETMAIN 10:55
PROVIDERS: ATTEND Internal Medicine Hematology & Oncology
DX: C82.01 Follicular lymphoma grade I, lymph nodes of head, face, and neck (principal); Z92.21 Personal history of antineoplastic chemotherapy
CPT/HCPCS: 78815; A9552

== ENCOUNTER → 2019-07-16 | Outpatient (CLI) | payer MEDICARE ==
[2019-07-16 09:38] LABS: Basophils % (A) 1 %; Eosinophils # (A) 0.3 k/uL (0-0.7); Eosinophils % (A) 5 %; HCT 36.6 % (34.0-46.0); HGB 12.4 gm/dL (11.4-16.0); Lymphocytes # (A) 0.9 k/uL (1.0-4.8); Lymphocytes % (A) 14 %; MCH 32.4 pg (25.0-35.0); MCHC 33.8 g/dL (31.0-37.0); MCV 95.9 fL (80.0-100.0); Mean Platelet Volume 7.9; Monocytes # (A) 0.5 k/uL (0-1.0); Monocytes % (A) 7 %; Neutrophils # (A) 4.6 k/uL (1.3-7.7); Neutrophils % (A) 71 %; Platelet Count 186 k/uL (150-450); RBC 3.82 m/uL (3.80-5.40); RDW 12.4 % (11.5-15.5); WBC 6.5 k/uL (3.8-10.6)
[2019-07-16 09:39] VITALS: RESP 16; TEMP 97.6
[2019-07-16 11:42] VITALS: BP 144/67; PULSE 69
== END | disposition home or self-care (01) ==
LOC: PROCWHC3 08:47
PROVIDERS: ATTEND Internal Medicine Hematology & Oncology
DX: C82.01 Follicular lymphoma grade I, lymph nodes of head, face, and neck (principal)
CPT/HCPCS: 85025; J1200; J2930; J9312; 36415; 96375; 96413; 96415

== ENCOUNTER → 2019-09-10 | Outpatient (CLI) | payer MEDICARE ==
[2019-09-10 09:19] VITALS: RESP 16; TEMP 98.4
[2019-09-10 09:46] LABS: Basophils % (A) 1 %; Eosinophils # (A) 0.3 k/uL (0-0.7); Eosinophils % (A) 4 %; HCT 35.7 % (34.0-46.0); HGB 11.9 gm/dL (11.4-16.0); Lymphocytes % (A) 17 %; MCH 32.5 pg (25.0-35.0); MCHC 33.4 g/dL (31.0-37.0); MCV 97.3 fL (80.0-100.0); Mean Platelet Volume 7.6; Monocytes # (A) 0.5 k/uL (0-1.0); Monocytes % (A) 8 %; Neutrophils # (A) 4.1 k/uL (1.3-7.7); Neutrophils % (A) 68 %; Platelet Count 203 k/uL (150-450); RBC 3.67 m/uL (3.80-5.40); RDW 13.2 % (11.5-15.5)
[2019-09-10 12:24] VITALS: BP 137/67; PULSE 70
== END | disposition home or self-care (01) ==
LOC: PROCWHC3 08:54
PROVIDERS: ATTEND Internal Medicine Hematology & Oncology
DX: Z51.11 Encounter for antineoplastic chemotherapy (principal); C82.01 Follicular lymphoma grade I, lymph nodes of head, face, and neck
CPT/HCPCS: 85025; 96375; 96413; 96415; 36415; J1200; J2930; J9312

== ENCOUNTER → 2019-11-05 | Outpatient (CLI) | payer MEDICARE ==
[~2019-11-05] MED LIST changes: -FAMOTIDINE 20 MG/2 ML VIAL IV NR; +FAMOTIDINE 20 MG/2 ML VIAL IVP NR; +RITUXIMAB PVVR IV NR; +SODIUM CHLORIDE 0.9% IV NR; -riTUXimab 700 MG in SODIUM CHLORIDE 0.9% 500 ML 500 ML IV NR
[2019-11-05 09:37] VITALS: RESP 16; TEMP 97.7
[2019-11-05 09:49] LABS: Basophils % (A) 1 %; Eosinophils # (A) 0.3 k/uL (0-0.7); Eosinophils % (A) 5 %; HCT 35.6 % (34.0-46.0); HGB 11.8 gm/dL (11.4-16.0); Lymphocytes # (A) 1.1 k/uL (1.0-4.8); Lymphocytes % (A) 18 %; MCH 32.6 pg (25.0-35.0); MCHC 33.3 g/dL (31.0-37.0); MCV 98.1 fL (80.0-100.0); Mean Platelet Volume 8.1; Monocytes # (A) 0.5 k/uL (0-1.0); Monocytes % (A) 8 %; Neutrophils # (A) 4.3 k/uL (1.3-7.7); Neutrophils % (A) 68 %; Platelet Count 199 k/uL (150-450); RBC 3.63 m/uL (3.80-5.40); RDW 12.4 % (11.5-15.5); WBC 6.4 k/uL (3.8-10.6)
[2019-11-05 12:31] VITALS: BP 145/79; PULSE 73
== END | disposition home or self-care (01) ==
LOC: PROCWHC3 08:48
PROVIDERS: ATTEND Internal Medicine Hematology & Oncology
DX: Z51.11 Encounter for antineoplastic chemotherapy (principal); C82.01 Follicular lymphoma grade I, lymph nodes of head, face, and neck
CPT/HCPCS: 85025; 96375; 96413; 96415; 36415; J1200; J2930; Q5119

== ENCOUNTER → 2019-12-19 | Outpatient (CLI) | payer MEDICARE ==
--- NOTE | 2019-12-22 06:52 | PE ---
EXAMINATION TYPE: PET CT fusion skull to thigh DATE OF EXAM: 12/19/2019 COMPARISON: Prior PET/CT May 31, 2019 and older studies HISTORY: Follicular lymphoma diagnosed 2016 , original involvement both above and below diaphragm. TECHNIQUE: Following the intravenous administration of 12.19 mCi of F-18 FDG, whole body images are performed from the skull base to the midthigh. Images are reviewed on the computer in the coronal, a xial, and sagittal planes. Reconstructed rotating images are created on independent workstation and reviewed on the computer. A noncontrast CT is performed in conjunction with the PET scan. SCAN: Subsequent Scan FINDINGS: MEAN SUV MEDIASTINUM: 0.68 MEAN SUV LIVER: 2.52 SKULL BASE AND NECK: No new areas of suspicious hypermetabolic uptake CHEST, MEDIASTINUM, AND HILAR REGION: No new areas of suspicious hypermetabolic uptake. ABDOMEN AND PELVIS: No new areas of suspicious hypermetabolic uptake. Persistent mild myesha mesentery appearance with prominent but subcentimeter lymph nodes in the midabdomen. No significant interval c hange from most recent PET/CT. Stable prominent left external iliac chain lymph node axial image 209 remains ametabolic. Normal excretion. OSSEOUS STRUCTURES: No new areas of suspicious hypermetabolic uptake. OTHER CT: Mild emphysematous change redemonstrated. Stable subcentimeter left supraclavicular and tho racic mediastinal lymph nodes. Cholecystectomy clips again seen. Some nodular calcifications along the hepatorenal recess redemonstr ated could represent some dropped stones are redemonstrated. Diffuse fatty infiltration of liver note d. Anteverted uterus. Pelvic phleboliths. Small caliber mildly calcified aorta. Bones: Degenerative changes of the hips. Degenerative disc disease mid to lower lumbar spine. No osse ous destructive process. IMPRESSION: No new areas of abnormal hypermetabolic uptake to suggest active lymphoma recurrence.
== END | disposition home or self-care (01) ==
LOC: RADPETMAIN 09:41
PROVIDERS: ATTEND Internal Medicine Hematology & Oncology
DX: C82.01 Follicular lymphoma grade I, lymph nodes of head, face, and neck (principal); E11.9 Type 2 diabetes mellitus without complications; Z92.21 Personal history of antineoplastic chemotherapy
CPT/HCPCS: 78815; A9552

== ENCOUNTER → 2019-12-31 | Outpatient (CLI) | payer MEDICARE ==
[~2019-12-31] MED LIST changes: +FAMOTIDINE 20 MG/2 ML VIAL IV NR; -FAMOTIDINE 20 MG/2 ML VIAL IVP NR
[2019-12-31 09:13] VITALS: RESP 16; TEMP 98
[2019-12-31 09:26] LABS: Basophils # (A) 0.1 k/uL (0-0.2); Basophils % (A) 1 %; Eosinophils # (A) 0.3 k/uL (0-0.7); Eosinophils % (A) 4 %; HCT 38.7 % (34.0-46.0); HGB 12.8 gm/dL (11.4-16.0); Lymphocytes # (A) 1.8 k/uL (1.0-4.8); Lymphocytes % (A) 21 %; MCH 32.9 pg (25.0-35.0); MCV 99.7 fL (80.0-100.0); Mean Platelet Volume 7.7; Monocytes # (A) 0.5 k/uL (0-1.0); Monocytes % (A) 6 %; Neutrophils # (A) 5.8 k/uL (1.3-7.7); Neutrophils % (A) 67 %; Platelet Count 223 k/uL (150-450); RBC 3.89 m/uL (3.80-5.40); RDW 12.3 % (11.5-15.5); WBC 8.7 k/uL (3.8-10.6)
[2019-12-31 12:07] VITALS: BP 152/74; PULSE 69
== END | disposition home or self-care (01) ==
LOC: PROCWHC3 09:00
PROVIDERS: ATTEND Internal Medicine Hematology & Oncology
DX: C82.01 Follicular lymphoma grade I, lymph nodes of head, face, and neck (principal)
CPT/HCPCS: 85025; 96375; 96413; 96415; 36415; J1200; J2930; Q5119

== ENCOUNTER → 2020-01-20 | Outpatient (CLI) | payer MEDICARE ==
[2020-01-20 11:33] LABS: HCT 36.8 % (34.0-46.0); HGB 11.8 gm/dL (11.4-16.0); MCH 32.2 pg (25.0-35.0); MCHC 32.1 g/dL (31.0-37.0); MCV 100.4 fL (80.0-100.0); Mean Platelet Volume 8.2; Platelet Count 194 k/uL (150-450); RBC 3.66 m/uL (3.80-5.40); RDW 12.6 % (11.5-15.5); WBC 5.8 k/uL (3.8-10.6)
[2020-01-20 11:39] LABS: Potassium 4.9 mmol/L (3.5-5.1)
== END | disposition home or self-care (01) ==
LOC: LABPAT 10:52
PROVIDERS: ATTEND Internal Medicine Interventional Cardiology
DX: Z01.818 Encounter for other preprocedural examination (principal); R07.9 Chest pain, unspecified
CPT/HCPCS: 80051; 82565; 84520; 85027

== ENCOUNTER 2020-01-23 10:45 | Day surgery (SDC) | payer MEDICARE ==
[2020-01-20 09:17] VITALS: BMI 29.9
[~2020-01-23 10:45] MED LIST changes: -ACETAMINOPHEN TAB 325 MG TAB PO NR; +ALPRAZolam 0.25 MG TAB PO PRN; +ALPRAZolam 0.5 MG TAB PO PRN; +ASPIRIN 325 MG TAB PO STA; -FAMOTIDINE 20 MG/2 ML VIAL IV NR; +NITROGLYCERIN SL TABS 0.4 MG TAB SUBLINGUAL PRN; -RITUXIMAB PVVR IV NR; +SODIUM CHLORIDE 0.9% 1,000 ML in EMPTY BAG 1 BAG IV ONE; -SODIUM CHLORIDE 0.9% 500 ML 500 ML in EMPTY BAG 1 BAG IV PRN; -SODIUM CHLORIDE 0.9% IV NR; -diphenhydrAMINE 50 MG/ML 1 ML VIAL IVP NR; -methylPREDNISolone SOD SUCCI 125 MG/2 ML VIAL IV NR
[2020-01-23] MEDS ORDERED: SODIUM CHLORIDE 0.9% 1,000 ML IV ONE (11:01)
[2020-01-23 11:12] LABS: Glucose,Whole Blood 212 mg/dL (75-99)
[2020-01-23 11:14] VITALS: TEMP 98.4
[2020-01-23] MEDS: INSULIN ASPART (NovoLOG) 100 UNIT/ML VIAL SQ SCH ×5 (11:14→16:35)
[2020-01-23] MEDS ORDERED: VERAPAMIL 2.5 MG/ML 2 ML AMP ONE (12:00)
[2020-01-23] MEDS ORDERED: LIDOCAINE 1% INJ 10MG/ML (20 ML MDV) ONE (12:00)
[2020-01-23] MEDS ORDERED: HEPARIN SODIUM 1,000 UN/ML (10ML VL) ONE (12:22)
[2020-01-23] MEDS ORDERED: MIDAZOLAM 2 MG/2 ML VIAL IV ONE (12:53)
[2020-01-23] MEDS ORDERED: LIDOCAINE 1% INJ 10MG/ML (20 ML MDV) SQ ONE (12:54)
[2020-01-23] MEDS: VERAPAMIL SYRINGE (5 MG/10 ML) INTRAARTER ONE ×2 (12:55→13:05)
[2020-01-23] MEDS ORDERED: HEPARIN SODIUM 1,000 UN/ML (10ML VL) IV ONE (12:58)
[2020-01-23] MEDS ORDERED: IOPAMIDOL-370 125ML BTL INJ ONE (13:05)
[2020-01-23] MEDS ORDERED: RX INFO: IV CONTRAST WAS GIVEN 1 EACH MISC MISCELLANE PRN (13:11)
[2020-01-23] MEDS ORDERED: SODIUM CHLORIDE 0.9% 1,000 ML IV SCH (13:15)
[2020-01-23 13:23] LABS: Glucose,Whole Blood 201 mg/dL (75-99)
--- NOTE | 2020-01-23 14:02 | CC ---
CARDIAC CATHETERIZATION REPORT DATE OF SERVICE: 01/23/2020 PERFORMING PHYSICIAN: Julien Landry MD. PROCEDURE PERFORMED: 1. Selective right and left coronary angiogram. 2. Left heart catheterization. INDICATION: This is a pleasant 74-year-old female patient with hypertension and dyslipidemia who continues to have chest discomfort concerning for angina. She underwent a stress test and that came in to be unremarkable. Because she continues to have chest discomfort, we decided to pursue a heart catheterization. APPROACH: Right radial artery. COMPLICATION: None. LEVEL OF SEDATION: Moderate with sedation length of 12 minutes. PROCEDURE DESCRIPTION: After obtaining an informed consent, the patient was brought to cardiac seed laboratory assistant. The right radial artery was cannulated using micropuncture technique, the micropuncture wire passed easily, then I placed a 6-Amharic sheath at the right radial artery. I gave the patient 2 mg of verapamil IA and 10,000 units of heparin IV. Selective right and left coronary angiogram performed using JR4 and JL3.5 catheters. The procedure was completed without any complication. SELECTIVE CORONARY ANGIOGRAM: 1. The RCA is a large caliber vessel and is a dominant vessel. The RCA in the proximal and midportion is angiographically normal. It distally appeared to have a plaque in the range of 30% to 40%. 2. The left main is angiographically normal. It bifurcates into left circumflex and left anterior descending artery. 3. The left circumflex is a large caliber vessel and is a nondominant vessel. The left circumflex proximally appeared to be angiographically normal and gives rise into first OM branch. In the mid left circumflex is normal and gives rise into a second OM branch. The left circumflex continued after that as a small-caliber vessel in the AV groove. 4. The LAD, the proximal LAD appeared to have a plaque in the range of 30% to 40%. The mid LAD appeared to be angiographically normal. The LAD gives rise into first and second diagonal branches both appeared to be angiographically normal. 5. HEMODYNAMICS: The LVEDP was 12 mmHg without significant gradient across the aortic valve. CONCLUSION: 1. Intermediate nonobstructive disease involving the RCA and LAD. 2. Normal LVEDP. POSTPROCEDURE MANAGEMENT: 1. Medical treatment. 2. Follow up with the patient. MMODL / IJN: [id number] /
--- NOTE | 2020-01-23 14:09 | LTR ---
DATE OF SERVICE: 01/23/2020 RE: Qiana Ivet Dear Dr. Leal; Ms. Ivet Kiran underwent today heart catheterization and that revealed intermediate two- vessel coronary artery disease. I advised maximized medical treatment along with aggressive cholesterol control and conservative medical approach only. I want to thank you for allowing us to participate in her care and please do not hesitate to call if any question or concern. Sincerely, MD FERNANDO Bellamy / CARMENN: [phone] /
[2020-01-23 15:36] VITALS: RESP 16
[2020-01-23 16:34] LABS: Glucose,Whole Blood 235 mg/dL (75-99)
[2020-01-23 16:40] VITALS: BP 136/63; PULSE 72
== END 2020-01-23 17:22 | disposition home or self-care (01) ==
LOC: CATHCVL 10:45
PROVIDERS: ATTEND Internal Medicine Interventional Cardiology
DX: I25.10 Atherosclerotic heart disease of native coronary artery without angina pectoris (principal); I10 Essential (primary) hypertension; E78.5 Hyperlipidemia, unspecified; E78.00 Pure hypercholesterolemia, unspecified; E11.9 Type 2 diabetes mellitus without complications; I34.0 Nonrheumatic mitral (valve) insufficiency; Z79.4 Long term (current) use of insulin; Z79.899 Other long term (current) drug therapy
CPT/HCPCS: 93458; C1769; C1894; J2250; J2001; J1644; Q9967

== ENCOUNTER → 2020-02-13 | Outpatient (CLI) | payer MEDICARE ==
--- NOTE | 2020-02-13 14:11 | CT ---
EXAMINATION TYPE: CT angio chest DATE OF EXAM: 02/13/2020 COMPARISON: May 31, 2012 HISTORY: Chest pain CT DLP: 399.4 mGycm CONTRAST: CT chest with contrast and 3D reconstruction with MIP imaging is performed with IV Contrast, patient injected with 57 mL of Isovue 370. Contrast-enhanced CT of the chest was performed through the course of the pulmonary arteries with osman g and mediastinal window settings submitted. 3D reconstruction with MIP imaging was also performed. PULMONARY ARTERIES: The pulmonary arteries and their major tributaries are patent. I do not see jing dence for sizable filling defect to suggest pulmonary embolic process. LUNGS: The lungs are clear and free of infiltrate. No evidence for atelectasis. No pulmonary nodule or mass is detected. No pleural effusion. MEDIASTINUM: Thoracic aorta is of normal caliber. Small sliding-type hiatal hernia.. The heart is no t enlarged. No evidence for mediastinal mass. No mediastinal lymph nodes greater than 1cm. HILAR STRUCTURES: No evidence for mass. No hilar lymph nodes greater than 1 cm. UPPER ABDOMEN: No significant abnormality is seen. IMPRESSION: 1. No evidence for Pulmonary embolism at this time.
== END | disposition home or self-care (01) ==
LOC: RADCTMAIN 12:24
PROVIDERS: ATTEND Internal Medicine Hematology & Oncology
DX: R07.9 Chest pain, unspecified (principal)
CPT/HCPCS: 82565; 84520; 71275; 36415; Q9967

== ENCOUNTER → 2020-02-25 | Outpatient (CLI) | payer MEDICARE ==
[~2020-02-25] MED LIST changes: +ACETAMINOPHEN TAB 325 MG TAB PO NR; -ALPRAZolam 0.25 MG TAB PO PRN; -ALPRAZolam 0.5 MG TAB PO PRN; -ASPIRIN 325 MG TAB PO STA; +FAMOTIDINE 20 MG/2 ML VIAL IVP NR; -NITROGLYCERIN SL TABS 0.4 MG TAB SUBLINGUAL PRN; +RITUXIMAB PVVR IV NR; -SODIUM CHLORIDE 0.9% 1,000 ML in EMPTY BAG 1 BAG IV ONE; +SODIUM CHLORIDE 0.9% 500 ML 500 ML in EMPTY BAG 1 BAG IV PRN; +SODIUM CHLORIDE 0.9% IV NR; +diphenhydrAMINE 50 MG/ML 1 ML VIAL IVP NR; +methylPREDNISolone SOD SUCCI 125 MG/2 ML VIAL IVP NR
[2020-02-25 09:11] VITALS: RESP 16; TEMP 97.7
[2020-02-25 09:42] LABS: Basophils % (A) 1 %; Eosinophils # (A) 0.2 k/uL (0-0.7); Eosinophils % (A) 4 %; HCT 36.4 % (34.0-46.0); HGB 12.6 gm/dL (11.4-16.0); Lymphocytes # (A) 1.3 k/uL (1.0-4.8); Lymphocytes % (A) 23 %; MCH 33.3 pg (25.0-35.0); MCHC 34.5 g/dL (31.0-37.0); MCV 96.3 fL (80.0-100.0); Mean Platelet Volume 7.7; Monocytes # (A) 0.4 k/uL (0-1.0); Monocytes % (A) 7 %; Neutrophils # (A) 3.7 k/uL (1.3-7.7); Neutrophils % (A) 64 %; Platelet Count 177 k/uL (150-450); RBC 3.78 m/uL (3.80-5.40); RDW 12.4 % (11.5-15.5); WBC 5.8 k/uL (3.8-10.6)
[2020-02-25 11:33] VITALS: PULSE 70
[2020-02-25 12:48] VITALS: BP 179/72
== END | disposition home or self-care (01) ==
LOC: PROCWHC3 08:56
PROVIDERS: ATTEND Internal Medicine Hematology & Oncology
DX: Z51.11 Encounter for antineoplastic chemotherapy (principal); C82.01 Follicular lymphoma grade I, lymph nodes of head, face, and neck
CPT/HCPCS: 85025; 96375; 96413; 96415; 36415; J1200; J2930; Q5119